=== PATIENT | female | born 1955 | race Caucasian/White ===

== ENCOUNTER 2016-07-26 13:48 | Emergency (ER) | payer OTHER ==
[~2016-07-26] VITALS: Ht 160 cm; Wt 72.6 kg
[~2016-07-26 13:48] MED LIST: CALTRATE 600 +1 TAB PO; COREG6.25 MG PO; DESYREL50 MG PO; KLONOPIN1 MG PO; LAMICTAL25 MG PO; LEXAPRO20 MG PO; XANAX0.5 MG PO
[2016-07-26 13:49] VITALS: BP 163/90
--- NOTE | 2016-07-26 14:20 | NUR ---
PT PLACED IN BED 5 BY EMS.
--- NOTE | 2016-07-26 14:36 | NUR ---
PATIENT MARTHA, PRESENTS TO ED WITH GENERALIZED WEAKNESS AND BLE PAIN S/P FALL; DENIES N/V/D; SKIN IS PINK/WARM/DRY; AAOX4 WITH EVEN AND STEADY GAIT; LUNGS CLEAR BL; HR EVEN AND REGULAR; PT DENIES ANY FEVER, CP, SOB, OR COUGH AT THIS TIME; PATIENT STATES PAIN OF 9/10 AT THIS TIME; VSS; PATIENT POSITIONED FOR COMFORT; HOB ELEVATED; BEDRAILS UP X2; BED DOWN. ER MD MADE AWARE OF PT STATUS.
--- NOTE | 2016-07-26 16:17 | NUR ---
Patient being evaluated by physician at bedside.
[2016-07-26 17:12] VITALS: BP 148/88
--- NOTE | 2016-07-26 17:13 | NUR ---
Patient discharged with v/s stable. Written and verbal after care instructions given and explained. Patient verbalized understanding. All questions addressed prior to discharge. Advised to follow up with PMD. Pt sitting in wheelchair waiting for family member to pick her up. Addendum: 07/26/16 at 1722 by KIMBERLY ADD TO ENTRY: Rx of MOTRIN given. Patient educated on indication of medication including possible reaction and side effects.
--- NOTE | 2016-07-26 17:42 | NUR ---
CALLED PATIENT'S [facility]LORD AND BROTHER, TELEPHONE MESSAGES LEFT.
== END 2016-07-26 17:13 | disposition home or self-care (01) ==
LOC: MED 13:48
DX: R53.1 Weakness (principal); R10.13 Epigastric pain; E11.9 Type 2 diabetes mellitus without complications; I10 Essential (primary) hypertension; F41.9 Anxiety disorder, unspecified; F32.9 Major depressive disorder, single episode, unspecified; Z90.710 Acquired absence of both cervix and uterus; Z90.13 Acquired absence of bilateral breasts and nipples; Z79.899 Other long term (current) drug therapy; Z91.018 Allergy to other foods
CPT/HCPCS: 36415; 71010; 80053; 81001; 81025; 83880; 84484; 85025; 85610; 85730; 93005; 99285; Q0092